=== PATIENT | female | born 1990 | race Caucasian/White ===

== ENCOUNTER 2017-01-08 11:05 | Emergency (ER) | payer SELFPAY ==
[2017-01-08 11:13] VITALS: BP 144/68
--- NOTE | 2017-01-08 11:20 | UC ---
Throat Pain/Nasal Dhiraj HPI - HPI Summary HPI Summary: Day 2 of sore throat body aches chills subjective fevers - History of Current Complaint Chief Complaint: UCRespiratory Stated Complaint: ST,CHILLS, BODY ACHES Time Seen by Provider: 01/08/17 11:15 Hx Obtained From: Patient Hx Last Menstrual Period: now ?: No Onset/Duration: Sudden Onset, Lasting Days - 2, Still Present Severity: Moderate Associated Signs & Symptoms: Positive: Fever - subjective - Allergies/Home Medications Allergies/Adverse Reactions: Allergies Allergy/AdvReac Type Severity Reaction Status Date / Time No Known Allergies Allergy Verified 01/08/17 11:13 PMH/Surg Hx/FS Hx/Imm Hx Previously Healthy: No Endocrine History Of: Denies: Diabetes, Thyroid Disease Cardiovascular History Of: Denies: Cardiac Disorders Respiratory History Of: Denies: Asthma Psychological History Of: Reports: Depression - Surgical History Surgical History: Yes Surgery Procedure, Year, and Place: gallbladder - Family History Known Family History: Positive: None - Social History Occupation: Employed Full-time - [employer] Lives: With Family Alcohol Use: Occasionally Substance Use Type: None Smoking Status (MU): Light Every Day Tobacco Smoker Type: Cigarettes Amount Used/How Often: 1/2ppd - Immunization History Most Recent Influenza Vaccination: declined Most Recent Tetanus Shot: 02/17/16 Most Recent Pneumonia Vaccination: none Review of Systems Constitutional: Chills, Fatigue Skin: Negative Eyes: Negative ENT: Sore Throat Respiratory: Negative Cardiovascular: Negative Gastrointestinal: Negative Genitourinary: Negative Motor: Negative Neurovascular: Negative Musculoskeletal: Negative Neurological: Negative Psychological: Negative All Other Systems Reviewed And Are Negative: Yes Physical Exam Triage Information Reviewed: Yes Appearance: Well-Appearing, No Pain Distress, Obese Vital Signs: Initial Vital Signs Temp 97.9 F 01/08/17 11:10 Pulse 91 01/08/17 11:10 Resp 18 01/08/17 11:10 BP 144/68 01/08/17 11:10 Pulse Ox 99 01/08/17 11:10 Vital Signs Reviewed: Yes Eye Exam: Normal Eyes: Positive: Conjunctiva Clear ENT Exam: Normal ENT: Positive: Normal ENT inspection, Hearing grossly normal, Pharynx normal, TMs normal, Tonsillar swelling, Tonsillar exudate. Negative: Nasal congestion, Nasal drainage, Trismus, Muffled/hoarse voice Dental Exam: Normal Neck exam: Normal Neck: Positive: Supple, Nontender, No Lymphadenopathy Respiratory Exam: Normal Respiratory: Positive: Chest non-tender, Lungs clear, Normal breath sounds, No respiratory distress, No accessory muscle use Cardiovascular Exam: Normal Cardiovascular: Positive: RRR, No Murmur, Pulses Normal, Brisk Capillary Refill Musculoskeletal Exam: Normal Musculoskeletal: Positive: Strength Intact, ROM Intact, No Edema Neurological Exam: Normal Neurological: Positive: Alert, Muscle Tone Normal Psychological Exam: Normal Psychological: Positive: Normal Response To Family Skin Exam: Normal Diagnostics - Laboratory Diagnostic Studies Completed/Ordered: RST (+) Throat Pain/Nasal Course/Dx - Course Assessment/Plan: Amoxicillin, tylenol, increase fluids, follow with pcp - Differential Dx/Diagnosis Differential Diagnosis/HQI/PQRI: Laryngitis, Pharyngitis, Sinusitis, URI Provider Diagnoses: Strep Pharyngitis Discharge - Discharge Plan Condition: Stable Disposition: HOME Prescriptions: Amoxicillin CAP* [Amoxicillin 500 MG CAP*] 500 mg PO Q12H #20 cap Patient Education Materials: Strep Throat (ED), Acetaminophen (By mouth), Amoxicillin (By mouth), DASH Eating Plan (ED), Hypertension (ED), How to Stop Smoking (ED), Secondhand Smoke Exposure in Children (ED) Forms: *Work Release Referrals: Adalberto Hancock MD [Primary Care Provider] - 2 Weeks
== END 2017-01-08 11:49 | disposition home or self-care (01) ==
LOC: UCEAST 11:05
DX: J02.0 Streptococcal pharyngitis (principal); F32.9 Major depressive disorder, single episode, unspecified; F17.210 Nicotine dependence, cigarettes, uncomplicated; E66.9 Obesity, unspecified; Z68.41 Body mass index [BMI] 40.0-44.9, adult
CPT/HCPCS: 87651; 99212; G0463

== ENCOUNTER 2017-01-19 11:25 | Emergency (ER) | payer SELFPAY ==
[2017-01-19 12:03] VITALS: BP 136/71
--- NOTE | 2017-01-19 12:25 | UC ---
Throat Pain/Nasal Dhiraj HPI - HPI Summary HPI Summary: Seen 01/08/17, dx with GAS via RST and put on 10 days of amox. Just stopped abx and started feeling pain yesterday. Throat is red with white spots. Denies fever. - History of Current Complaint Chief Complaint: UCRespiratory Stated Complaint: SORE THROAT Time Seen by Provider: 01/19/17 12:00 Hx Obtained From: Patient Hx Last Menstrual Period: 01/08/17 ?: No Onset/Duration: Gradual Onset, Lasting Hours Severity: Moderate Cough: None Associated Signs & Symptoms: Negative: Fever, Vomiting - Allergies/Home Medications Allergies/Adverse Reactions: Allergies Allergy/AdvReac Type Severity Reaction Status Date / Time No Known Allergies Allergy Verified 01/08/17 11:13 PMH/Surg Hx/FS Hx/Imm Hx Endocrine History Of: Denies: Diabetes, Thyroid Disease Cardiovascular History Of: Denies: Cardiac Disorders Respiratory History Of: Denies: Asthma Psychological History Of: Reports: Depression - Surgical History Surgical History: Yes Surgery Procedure, Year, and Place: gallbladder - Family History Known Family History: Positive: None - Social History Lives: With Family Alcohol Use: Occasionally Substance Use Type: None Smoking Status (MU): Light Every Day Tobacco Smoker Type: Cigarettes Amount Used/How Often: 1/2ppd - Immunization History Most Recent Influenza Vaccination: unable to remember Most Recent Tetanus Shot: 02/17/16 Most Recent Pneumonia Vaccination: none Review of Systems Constitutional: Negative Skin: Negative Eyes: Negative ENT: Sore Throat Respiratory: Negative Cardiovascular: Negative Gastrointestinal: Negative Genitourinary: Negative Motor: Negative Neurovascular: Negative Musculoskeletal: Negative Neurological: Negative Psychological: Negative All Other Systems Reviewed And Are Negative: Yes Physical Exam Triage Information Reviewed: Yes Appearance: Well-Appearing, Obese Vital Signs: Initial Vital Signs Temp 97.4 F 01/19/17 11:56 Pulse 84 01/19/17 11:56 Resp 18 01/19/17 11:56 BP 136/71 01/19/17 11:56 Pulse Ox 98 01/19/17 11:56 Vital Signs Reviewed: Yes Eye Exam: Normal Eyes: Positive: Conjunctiva Clear ENT: Positive: Pharyngeal erythema, Tonsillar exudate Neck: Positive: Nontender, Enlarged Nodes @ - tonsillar Respiratory Exam: Normal Respiratory: Positive: Chest non-tender, Lungs clear, Normal breath sounds, No respiratory distress, No accessory muscle use Cardiovascular Exam: Normal Cardiovascular: Positive: RRR, No Murmur Musculoskeletal Exam: Normal Neurological Exam: Normal Neurological: Positive: Alert Psychological Exam: Normal Skin Exam: Normal Throat Pain/Nasal Course/Dx - Differential Dx/Diagnosis Provider Diagnoses: Recurrent strep tonsillitis Discharge - Discharge Plan Condition: Stable Disposition: HOME Prescriptions: Cefdinir [Cefdinir 300 MG CAP] 300 mg PO BID #20 cap Patient Education Materials: Strep Throat (ED) Referrals: Adalberto Hancock MD [Primary Care Provider] - Additional Instructions: Wash frequently touched surfaces in your house and get a new toothbrush senior care through your antibiotic treatment. If you have new or worsening symptoms, please return here.
== END 2017-01-19 12:29 | disposition home or self-care (01) ==
LOC: UCEAST 11:25
DX: J03.01 Acute recurrent streptococcal tonsillitis (principal); F32.9 Major depressive disorder, single episode, unspecified; E66.9 Obesity, unspecified; Z90.49 Acquired absence of other specified parts of digestive tract; F17.210 Nicotine dependence, cigarettes, uncomplicated
CPT/HCPCS: 99212; G0463

== ENCOUNTER 2017-08-25 14:43 | Emergency (ER) | payer BC, OTHER ==
[2017-08-25 15:00] VITALS: BP 126/69
--- NOTE | 2017-08-25 15:08 | UC ---
Throat Pain/Nasal Dhiraj HPI - HPI Summary HPI Summary: 27 yo female with sore throat which started yesterday She states she had strep in December this year and it feels similar She is 12 weeks no n/v - History of Current Complaint Chief Complaint: UCGeneralIllness Stated Complaint: SORE THROAT Time Seen by Provider: 08/25/17 14:49 Hx Obtained From: Patient Hx Last Menstrual Period: 01/08/17 Onset/Duration: Gradual Onset, Lasting Hours Severity: Moderate Pain Intensity: 4 Pain Scale Used: 0-10 Numeric Cough: None - Epiglottits Risk Factors Epiglottis Risk Factors: Negative - Allergies/Home Medications Allergies/Adverse Reactions: Allergies Allergy/AdvReac Type Severity Reaction Status Date / Time No Known Allergies Allergy Verified 08/25/17 14:53 Home Medications: Home Medications NK [No Home Medications Reported] 08/25/17 [History Confirmed 08/25/17] PMH/Surg Hx/FS Hx/Imm Hx Previously Healthy: Yes - Surgical History Surgical History: Yes Surgery Procedure, Year, and Place: gallbladder - Family History Known Family History: Positive: Hypertension - Social History Alcohol Use: None Substance Use Type: None Smoking Status (MU): Never Smoked Tobacco Type: Cigarettes Amount Used/How Often: 1/2ppd - Immunization History Most Recent Influenza Vaccination: unable to remember Most Recent Tetanus Shot: 02/17/16 Most Recent Pneumonia Vaccination: none Review of Systems Constitutional: Negative Skin: Negative Eyes: Negative ENT: Sore Throat Respiratory: Negative Cardiovascular: Negative Gastrointestinal: Negative Genitourinary: Negative Motor: Negative Neurovascular: Negative Musculoskeletal: Negative Neurological: Negative Psychological: Negative Is Patient Immunocompromised?: No All Other Systems Reviewed And Are Negative: Yes Physical Exam Triage Information Reviewed: Yes Appearance: Well-Appearing, No Pain Distress, Well-Nourished Vital Signs: Initial Vital Signs Temp 98.1 F 08/25/17 14:55 Pulse 96 08/25/17 14:55 Resp 16 08/25/17 14:55 BP 126/69 08/25/17 14:55 Pulse Ox 100 08/25/17 14:55 Vital Signs Reviewed: Yes Eyes: Positive: Conjunctiva Clear ENT: Positive: Pharyngeal erythema, Tonsillar swelling Neck: Positive: Supple, Enlarged Nodes @ - ant cerv Respiratory: Positive: Lungs clear, Normal breath sounds, No respiratory distress, No accessory muscle use Cardiovascular: Positive: RRR, No Murmur Musculoskeletal: Positive: ROM Intact, No Edema Neurological: Positive: Alert Psychological Exam: Normal Skin Exam: Normal Diagnostics - Laboratory Diagnostic Studies Completed/Ordered: Strep (-) Throat Pain/Nasal Course/Dx - Differential Dx/Diagnosis Provider Diagnoses: pharyngitis Discharge - Discharge Plan Condition: Stable Disposition: HOME Patient Education Materials: Pharyngitis (ED) Referrals: Adalberto Hancock MD [Primary Care Provider] - 4 Days (if not better) Additional Instructions: Your strep test was negative Since you are take tylenol as needed for pain Recheck if symptoms worsen Recheck if unable to swallow Recheck with your MD in 4 days if not back to normal
== END 2017-08-25 15:35 | disposition home or self-care (01) ==
LOC: UCEAST 14:43
DX: O26.891 Other specified pregnancy related conditions, first trimester (principal); J02.9 Acute pharyngitis, unspecified; Z3A.12 12 weeks gestation of pregnancy; Z90.49 Acquired absence of other specified parts of digestive tract
CPT/HCPCS: 87651; 99211; G0463

== ENCOUNTER 2017-11-04 15:41 | Emergency (ER) | payer OTHER ==
[2017-11-04 15:59] VITALS: BP 124/68
--- NOTE | 2017-11-04 18:23 | UC ---
Respiratory Complaint HPI - HPI Summary HPI Summary: 27 yo WF 21w GA c/o nasal congestion, f/c/bodyaches, son tested positive for flu 5 days ago - History of Current Complaint Chief Complaint: UCRespiratory Stated Complaint: URI Time Seen by Provider: 11/04/17 18:08 Hx Obtained From: Patient Hx Last Menstrual Period: May 2017 Pain Intensity: 0 - Allergies/Home Medications Allergies/Adverse Reactions: Allergies Allergy/AdvReac Type Severity Reaction Status Date / Time No Known Allergies Allergy Verified 11/04/17 16:00 PMH/Surg Hx/FS Hx/Imm Hx Previously Healthy: Yes - Surgical History Surgical History: Yes Surgery Procedure, Year, and Place: gallbladder - Family History Known Family History: Positive: None, Hypertension - Social History Alcohol Use: None Substance Use Type: None Smoking Status (MU): Never Smoked Tobacco Type: Cigarettes Amount Used/How Often: 1/2ppd - Immunization History Most Recent Influenza Vaccination: unable to remember Most Recent Tetanus Shot: 02/17/16 Most Recent Pneumonia Vaccination: none Review of Systems Constitutional: Fever, Chills, Fatigue Skin: Negative Eyes: Negative ENT: Nasal Discharge, Sinus Congestion Respiratory: Negative Cardiovascular: Negative Gastrointestinal: Negative Genitourinary: Negative Motor: Negative Neurovascular: Negative Musculoskeletal: Myalgia Neurological: Negative Psychological: Negative Is Patient Immunocompromised?: Yes - pt is 21W GA All Other Systems Reviewed And Are Negative: Yes Physical Exam Triage Information Reviewed: Yes Vital Signs: Initial Vital Signs Temp 36.4 C 11/04/17 15:56 Pulse 98 11/04/17 15:56 Resp 18 11/04/17 15:56 BP 124/68 11/04/17 15:56 Pulse Ox 98 11/04/17 15:56 Eye Exam: Normal ENT Exam: Normal ENT: Positive: Nasal congestion, Nasal drainage Dental Exam: Normal Neck exam: Normal Neck: Positive: 1 Respiratory Exam: Normal Cardiovascular Exam: Normal Abdominal Exam: Normal Musculoskeletal Exam: Normal Neurological Exam: Normal Psychological Exam: Normal Skin Exam: Normal UC Diagnostic Evaluation - Laboratory O2 Sat by Pulse Oximetry: 98 Respiratory Course/Dx - Differential Dx/Diagnosis Provider Diagnoses: URI. Viral illness Discharge - Discharge Plan Condition: Stable Disposition: HOME Patient Education Materials: Upper Respiratory Infection (ED) Referrals: No Primary Care Phys,NOPCP [Primary Care Provider] - Additional Instructions: Benadryl at night as needed
== END 2017-11-04 18:22 | disposition home or self-care (01) ==
LOC: UCEAST 15:41
DX: J06.9 Acute upper respiratory infection, unspecified (principal)
CPT/HCPCS: 99211; G0463

== ENCOUNTER 2017-12-12 16:26 | Emergency (ER) | payer OTHER ==
[2017-12-12 16:35] VITALS: BP 123/78
--- NOTE | 2017-12-12 16:49 | ED ---
Respiratory - HPI Summary HPI Summary: 27-year-old female presents with cough for the past couple days. She admits to chest tightness. She denies any chest pain or shortness of breath. She states her son was diagnosed with pneumonia. She is concerned that she has pneumonia. She admits to sore throat. She denies any belly pain. She denies any vaginal discharge. States is going well. She denies any nausea vomiting diarrhea. States she is stay hydrated. She denies any headache or neck stiffness. She denies any sinus congestion. She denies any ear pain. She has no medical conditions besides being 26 weeks . - History of Current Complaint Chief Complaint: UCRespiratory Stated Complaint: COUGH,CHILLS Time Seen by Provider: 12/12/17 16:36 Pain Intensity: 2 - Allergy/Home Medications Allergies/Adverse Reactions: Allergies Allergy/AdvReac Type Severity Reaction Status Date / Time No Known Allergies Allergy Verified 12/12/17 16:35 PMH/Surg Hx/FS Hx/Imm Hx Endocrine/Hematology History: Denies: Hx Diabetes, Hx Thyroid Disease Respiratory History: Denies: Hx Asthma Psychiatric History: Reports: Hx Depression - Cancer History Cancer Type, Location and Year: denies - Surgical History Surgery Procedure, Year, and Place: gallbladder Infectious Disease History: Yes Infectious Disease History: Denies: Hx Hepatitis, History Other Infectious Disease, Traveled Outside the [place] in Last 30 Days - Family History Known Family History: Positive: None, Hypertension - Social History Alcohol Use: None Substance Use Type: Reports: None Smoking Status (MU): Never Smoked Tobacco Type: Cigarettes Amount Used/How Often: 1/2ppd Review of Systems Positive: Fatigue. Negative: Fever Positive: Sore Throat. Negative: Ear Ache, Nasal Discharge Positive: Other - chest tightness Positive: Cough Negative: Abdominal Pain All Other Systems Reviewed And Are Negative: Yes Physical Exam Triage Information Reviewed: Yes Vital Signs On Initial Exam: Initial Vitals Temp Pulse Resp BP Pulse Ox 96.9 F 117 18 123/78 100 12/12/17 16:32 12/12/17 16:32 12/12/17 16:32 12/12/17 16:32 12/12/17 16:32 Vital Signs Reviewed: Yes Appearance: Positive: Well-Appearing Skin: Positive: Warm, Dry Head/Face: Positive: Normal Head/Face Inspection Eyes: Positive: Normal, EOMI, PATRICIA, Conjunctiva Clear ENT: Positive: Normal ENT inspection, Pharyngeal erythema, TMs normal, Other - soft palate symmetric. Negative: Tonsillar swelling, Tonsillar exudate, Trismus , Muffled voice Neck: Positive: Supple, Nontender, No Lymphadenopathy Respiratory/Lung Sounds: Positive: Clear to Auscultation, Breath Sounds Present , Other - neg egophony Cardiovascular: Positive: Normal, RRR Abdomen Description: Positive: Nontender, Soft Bowel Sounds: Positive: Present Musculoskeletal: Positive: Normal Neurological: Positive: Normal Psychiatric: Positive: Normal Diagnostics - Vital Signs Vital Signs Temp Pulse Resp BP Pulse Ox 12/12/17 16:32 96.9 F 117 18 123/78 100 - Laboratory Lab Statement: Any lab studies that have been ordered have been reviewed, and results considered in the medical decision making process. Disposition - Course Course Of Treatment: 27-year-old female presents with cough for the past couple days. She admits to chest tightness. She denies any chest pain or shortness of breath. She states her son was diagnosed with pneumonia. She is concerned that she has pneumonia. She admits to sore throat. She denies any belly pain. She denies any vaginal discharge. States is going well. She denies any nausea vomiting diarrhea. States she is stay hydrated. She denies any headache or neck stiffness. She denies any sinus congestion. She denies any ear pain. She has no medical conditions besides being 26 weeks . On exam lungs clear to auscultation. neg egophony. will try as early pneumonia due to son being sick with such and being so do not want to do xray. will treat with zpack. flu neg. patient understand and agrees with plan. - Differential Dx - Cardiopulmonary Differential Diagnoses - Cardiopulmonary: Bronchitis, Influenza, Lower Resp Infection - Diagnoses Provider Diagnoses: Upper respiratory infection Discharge - Sign-Out/Discharge Documenting (check all that apply): Discharge - Discharge Plan Condition: Good Disposition: HOME Prescriptions: Azithromycin TAB* [Zithromax TAB (Z-TEVIN) 250 mg #6 tabs] 2 tab PO .TODAY, THEN 1 DAILY #1 tevin Patient Education Materials: Upper Respiratory Infection (ED) Referrals: No Primary Care Phys,NOPCP [Primary Care Provider] - Additional Instructions: will treat you as early pneumonia with azithromycin two tablet day 1 and one tablet next 4 days Take Tylenol every 6 hours for fever or pain Follow up with primary within 7 days Return to ED if develop any new or worsening symptoms - Billing Disposition and Condition Condition: GOOD Disposition: HOME
== END 2017-12-12 17:22 | disposition home or self-care (01) ==
LOC: UCEAST 16:26
DX: O26.892 Other specified pregnancy related conditions, second trimester (principal); J06.9 Acute upper respiratory infection, unspecified; Z3A.26 26 weeks gestation of pregnancy; F32.9 Major depressive disorder, single episode, unspecified
CPT/HCPCS: 87502; 99212; G0463

== ENCOUNTER 2018-08-25 09:25 | Emergency (ER) | payer OTHER ==
[2018-08-25 09:32] VITALS: BP 136/75
--- NOTE | 2018-08-25 09:43 | UC ---
Eye Complaint HPI - HPI Summary HPI Summary: 28 yo female presents with right upper eyelid redness and swelling noticed this morning. She is concerned that it might be "pink eye" because she has 3 children at home. She does not wear glasses or contacts. Denies vision changes, injury, drainage from the eye, fever, or recent illness. - History of Current Complaint Chief Complaint: UCEye Stated Complaint: EYE PAIN Time Seen by Provider: 08/25/18 09:43 Hx Obtained From: Patient Hx Last Menstrual Period: pill Onset/Duration: Sudden Onset Severity Initially: Mild Severity Currently: Mild Pain Intensity: 2 Pain Scale Used: 0-10 Numeric - Allergies/Home Medications Allergies/Adverse Reactions: Allergies Allergy/AdvReac Type Severity Reaction Status Date / Time No Known Allergies Allergy Verified 08/25/18 09:35 Home Medications: Home Medications NK [No Home Medications Reported] 08/25/18 [History Confirmed 08/25/18] PMH/Surg Hx/FS Hx/Imm Hx - Additional Past Medical History Additional PMH: None - Surgical History Surgical History: Yes Surgery Procedure, Year, and Place: gallbladder - Family History Known Family History: Positive: Hypertension - Social History Occupation: Employed Full-time Lives: With Family Alcohol Use: None Substance Use Type: None Smoking Status (MU): Light Every Day Tobacco Smoker Type: Cigarettes Amount Used/How Often: 1/2ppd - Immunization History Most Recent Influenza Vaccination: unable to remember Most Recent Tetanus Shot: 02/17/16 Most Recent Pneumonia Vaccination: none Review of Systems All Other Systems Reviewed And Are Negative: Yes Constitutional: Positive: Negative Skin: Positive: Negative Eyes: Positive: Other - Upper eyelid pain/swelling ENT: Positive: Negative Respiratory: Positive: Negative Cardiovascular: Positive: Negative Gastrointestinal: Positive: Negative Neurological: Positive: Negative Psychological: Positive: Negative Physical Exam - Summary Physical Exam Summary: GENERAL: NAD. WDWN. No pain distress. SKIN: No rashes, sores, lesions, or open wounds. HEENT: Head: AT/NC Eyes: EOM intact. PERRLA. Conjunctiva clear without inflammation or discharge. No scleral injection. RIGHT upper eyelid with mild edema and erythema. Mild TTP over medial aspect with slight nodule appreciated. Ears: Hearing grossly normal. TMs intact, no bulging, erythema, or edema. Nose: Nasal mucosa pink and moist. NTTP maxillary and frontal sinus. Throat: Posterior oropharynx without exudates, erythema, or tonsillar enlargement. Uvula midline. NECK: Supple. Nontender. No lymphadenopathy. CHEST: No accessory muscle use. Breathing comfortably and in no distress. CV: Pulses intact. Cap refill <2seconds NEURO: Alert. PSYCH: Age appropriate behavior. Triage Information Reviewed: Yes Vital Signs: Initial Vital Signs Temp 96.6 F 08/25/18 09:29 Pulse 90 08/25/18 09:29 Resp 17 08/25/18 09:29 BP 136/75 08/25/18 09:29 Pulse Ox 99 08/25/18 09:29 Vital Signs Reviewed: Yes Eye Complaint Course/Dx - Course Course Of Treatment: Suspect blepharitis vs stye. Advised to apply warm compresses and if does not improve in 2-3 days, to begin erythromycin ointment dispensed to her at the clinic twice a day. If her symptoms worsen or swelling/ redness spread - be rechecked. - Differential Dx/Diagnosis Provider Diagnosis: Hordeolum externum right upper eyelid Discharge - Sign-Out/Discharge Documenting (check all that apply): Patient Departure All imaging exams completed and their final reports reviewed: No Studies - Discharge Plan Condition: Stable Disposition: HOME Patient Education Materials: Stye (ED), Blepharitis (ED) Referrals: No Primary Care Phys,NOPCP [Primary Care Provider] - Additional Instructions: If you develop a fever, shortness of breath, chest pain, new or worsening symptoms - please call your PCP or go to the ED. - Billing Disposition and Condition Condition: STABLE Disposition: Home
[2018-08-25] MEDS ORDERED: Erythromycin TOPICAL GEL* 30 GM TUBE TOPICAL ONE (09:55)
[2018-08-25] MEDS ORDERED: Erythromycin OPTH OINT* APPLIC OINT ONE (10:04)
== END 2018-08-25 10:15 | disposition home or self-care (01) ==
LOC: UCEAST 09:25
DX: H00.011 Hordeolum externum right upper eyelid (principal); F17.210 Nicotine dependence, cigarettes, uncomplicated
CPT/HCPCS: 99212; A9270-GY; G0463